=== PATIENT | male | born 1975 | race Hispanic/Latino ===

== ENCOUNTER 2020-04-03 13:43 | Emergency (ER) | payer SELFPAY ==
[2020-04-04 08:37] LABS: SARS-CoV-2 MS2 Positive; SARS-CoV-2 N Gene Negative; SARS-CoV-2 S Gene Negative; SARS-CoV-2 by NAA Not Detected (NotDetected); SARS-CoV-2 orf1ab Negative
== END 2020-04-03 15:10 | disposition home or self-care (01) ==
LOC: MADERS 13:43
DX: B02.9 Zoster without complications (principal); R05 Cough; Z20.828 Contact with and (suspected) exposure to other viral communicable diseases; E11.9 Type 2 diabetes mellitus without complications; I10 Essential (primary) hypertension; Z79.84 Long term (current) use of oral hypoglycemic drugs; Z79.899 Other long term (current) drug therapy
CPT/HCPCS: 87635; 99283; U0003

== ENCOUNTER 2021-05-05 14:08 | Emergency (ER) | payer SELFPAY ==
[2021-05-05] MEDS ORDERED: cefTRIAXone\\ROCEPHIN 1 GM VIAL ONE (15:29)
[2021-05-05] MEDS ORDERED: Ketorolac Tromethamine 60 MG/2 ML VIAL ONE (15:29)
== END 2021-05-05 16:20 | disposition home or self-care (01) ==
LOC: MADERS 14:08
DX: H66.001 Acute suppurative otitis media without spontaneous rupture of ear drum, right ear (principal); E11.9 Type 2 diabetes mellitus without complications; I10 Essential (primary) hypertension; Z79.84 Long term (current) use of oral hypoglycemic drugs; Z79.899 Other long term (current) drug therapy
CPT/HCPCS: 96372; 99282; J0696; J1885

== ENCOUNTER 2022-12-13 09:29 | Outpatient (CLI) | payer OTHER | END 2022-12-13 09:30 | disposition home or self-care (01) | LOC: MADLAB 09:29 → MADRAD 09:30 | PROVIDERS: ATTEND Family Medicine | DX: M25.561 Pain in right knee (principal); M17.11 Unilateral primary osteoarthritis, right knee ==